=== PATIENT | male | born 1975 | race Two or more races ===

== ENCOUNTER 2021-11-02 21:50 | Emergency (ER) | payer MEDICAID ==
[~2021-11-02] VITALS: Ht 180.3 cm; Wt 91.0 kg
[2021-11-02] MEDS ORDERED: SODIUM CHLORIDE 0.9% 1,000 ML IV ONE (22:45)
[2021-11-02] MEDS ORDERED: ASPIRIN 325MG EC TABLET PO ONE (22:45)
[2021-11-02] MEDS ORDERED: NITROGLYCERIN 0.4MG TABLET SL SL ONE (22:45)
[2021-11-02] MEDS ORDERED: LORAZEPAM 2MG/ML CPJ IV ONE (22:45)
[2021-11-02 23:24] LABS: BASOPHILS % 0.7 % (0.0-2.0); EOSINOPHILS % 0.2 % (0.0-5.0); HEMATOCRIT. 44.9 % (42.0-52.0); HEMOGLOBIN. 15.6 g/dL (14.0-18.0); LYMPHOCYTES % 28.3 % (20.0-50.0); MEAN CORPUSCULAR HEMOGLOBIN 32.2 pg (28.0-32.0); MEAN CORPUSCULAR VOLUME 92.6 fL (80.0-94.0); MEAN PLATELET VOLUME 8.6 fl (7.4-10.4); MONOCYTES % 4.6 % (2.0-8.0); NEUTROPHILS % 66.2 % (40.0-76.0); PLATELET 153 x1000/uL (130-400); RED BLOOD CELL COUNT 4.85 mill/uL (4.7-6.1)
[2021-11-02 23:27] LABS: CHLORIDE 105 mEq/L (98-107)
[2021-11-03 00:44] LABS: CLARITY URINE CLEAR (CLEAR); COLOR URINE YELLOW (YELLOW); KETONES URINE NEGATIVE (NEGATIVE); LEUKOCYTE ESTERASE URINE NEGATIVE (NEGATIVE); NITRITE URINE NEGATIVE (NEGATIVE); OCCULT BLOOD URINE NEGATIVE (NEGATIVE); PROTEIN URINE NEGATIVE (NEGATIVE); SPECIFIC GRAVITY URINE 1.007 (1.005-1.030); UROBILINOGEN URINE 0.2 E.U./dL (0.2-1.0)
[2021-11-03 00:55] LABS: *AMPHETAMINES SCREEN URINE NEGATIVE (NEGATIVE)
[2021-11-03 00:56] LABS: *BENZODIAZEPINES SCREEN URINE NEGATIVE (NEGATIVE); *COCAINE SCREEN URINE NEGATIVE (NEGATIVE); CANNABINOID URINE SCREEN NEGATIVE (NEGATIVE); OPIATES URINE SCREEN NEGATIVE (NEGATIVE)
[2021-11-03 00:57] LABS: PHENCYCLIDINE URINE SCREEN NEGATIVE (NEGATIVE)
[2021-11-03] MEDS ORDERED: SODIUM CHLORIDE 0.9% 1,000 ML IV ONE (02:45)
[2021-11-03 04:30] VITALS: BP 122/73
[2021-11-05 12:58] LABS: METHADONE URINE SCREEN NEGATIVE (NEGATIVE)
[2021-11-05 13:27] LABS: *BARBITURATES SCREEN URINE NEGATIVE (NEGATIVE)
== END 2021-11-03 04:30 | disposition home or self-care (01) ==
LOC: ER 21:50
DX: R07.2 Precordial pain (principal); R00.0 Tachycardia, unspecified; F14.90 Cocaine use, unspecified, uncomplicated; F19.90 Other psychoactive substance use, unspecified, uncomplicated; R73.9 Hyperglycemia, unspecified; R74.01 Elevation of levels of liver transaminase levels
CPT/HCPCS: 36415; 71045; 80053; 80305; 81003; 83880; 84484; 85025; 93005; 96361; 96374; 99285; J2060; J7030